=== PATIENT | male | born 1970 | race Caucasian/White ===

== ENCOUNTER 2018-08-13 15:45 | Emergency (ER) | payer OTHER ==
[~2018-08-13] VITALS: Ht 175.3 cm; Wt 104.3 kg
--- OUTSIDE RECORDS SUMMARY | 2018-08-13 15:51 | XMS REPORT | Continuity of Care Document ---
Demographics Preferred Language Unknown Marital Status Unknown Evangelical Affiliation Unknown Race Unknown Ethnic Group Unknown Author Author [facility] Address Unknown Phone Unavailable Allergies There is no data. Medications There is no data. Problems Date Dx Coded Attending Type Code Diagnosis Diagnosed By 09/13/2011 296.90 MOOD DISORDER NOS Procedures There is no data. Results There is no data. Encounters ACCT No. Visit Date/Time Discharge Status Pt. Type Provider Facility Loc./Unit Complaint [id number] 02/28/2012 17:52:00 02/28/2012 23:59:59 CLS Outpatient
[2018-08-13] MEDS ORDERED: LIDOCAINE/EPI 2% 1:100,00 (XYLOCAINE) 20 ML VIAL INJ ONE (16:00)
[2018-08-13] MEDS ORDERED: TETANUS,DIPTH,PERTUSS P/F (BOOSTRIX) 0.5 ML VIAL IM ONE (16:00)
--- NOTE | 2018-08-13 16:03 | ED Head Injury ---
General Chief Complaint: Laceration Stated Complaint: HIT IN THE HEAD WITH TOOL Source: patient Exam Limitations: no limitations History of Present Illness Date Seen by Provider: Aug 13, 2018 Time Seen by Provider: 16:00 Initial Comments To ER with reports of being hit in the top of the head with a pallet arm at work at [employer] just prior to arrival. Tetanus is not up-to-date. Small laceration to the scalp. No active bleeding. Did not lose consciousness, no headache, no nausea no vomiting no dizziness no other concussive or head injury symptoms. Occurred: just prior to arrival Severity: mild Location: parietal Method of Injury: direct blow Loss of Consciousness: no loss of consciousness Associated Systoms: Other Allergies and Home Medications Allergies Coded Allergies: No Known Drug Allergies (Unverified , 08/13/18) Home Medications No Active Prescriptions or Reported Meds Patient Home Medication List Home Medication List Reviewed: Yes Review of Systems Review of Systems Constitutional: see HPI Eyes: No Symptoms Reported Ears, Nose, Mouth, Throat: no symptoms reported Respiratory: no symptoms reported Cardiovascular: no symptoms reported Genitourinary: no symptoms reported Musculoskeletal: no symptoms reported Skin: see HPI Psychiatric/Neurological: No Symptoms Reported Endocrine: No Symptoms Reported Hematologic/Lymphatic: No Symptoms Reported Past Bqduili-Tnidvy-Onstnn Hx Patient Social History Recent Foreign Travel: No Contact w/Someone Who Travel: No Physical Exam Vital Signs Capillary Refill : Height, Weight, BMI Height: '" Weight: lbs. oz. kg; BMI Method: General Appearance: WD/WN, no apparent distress HEENT: PERRL/EOMI, normal ENT inspection, TMs normal Neck: non-tender, full range of motion Respiratory: no respiratory distress, no accessory muscle use Psychiatric: alert, oriented x 3 [place] Nerves: normal hearing, PERRL Skin: normal color, warm/dry, other (3 centimeter laceration to the right parietal scalp oriented and anterior to posterior fashion. No active bleeding.) [place] Coma Score Best Eye Response: (4) Open Spontaneously Best Verbal Response: (5) Oriented Best Motor Response: (6) Obeys Commands [place] Total: 15 Procedures/Interventions Wound Location: Scalp Wound Length (cm): 3 Wound's Depth, Shape: linear, sub Q Wound Explored: clean Irrigated w/ Saline (ccs): 30 Anesthesia: Lidocaine w/ Epi Staple Repair: Stapler Skin Precise Progress Anesthetized with 3 mL of 2% lidocaine with epinephrine. Scrubbed with waxing/ saline solution, irrigated with plain saline. Closed with 5 willie. Progress/Results/Core Measures Results/Orders My Orders Orders - IVONNE HARPER APRN Lidocaine/Epi 2% 1:100,000 (Xylocaine/Ep (08/13/18 16:00) Dipht,Pertuss(Acell),Tet Adult (Boostrix (08/13/18 16:00) Departure Impression Primary Impression: Scalp laceration Qualified Codes: S01.01XA - Laceration without foreign body of scalp, initial encounter Disposition: HOME, SELF-CARE Condition: Stable Departure-Patient Inst. Decision time for Depature: 16:02 Patient Instructions: Laceration Repair With [place] (DC) Add. Discharge Instructions: 1. Return to the emergency room to have the willie removed in about 7 days. Return before then for any sign of head injury such as severe headache, nausea vomiting or other concerns. You may shower allowing water and over the sternum tonight. All discharge instructions reviewed with patient and/or family. Voiced understanding. Scripts No Active Prescriptions or Reported Meds IVONNE HARPER APRN Aug 13, 2018 16:03
[2018-08-13 16:28] VITALS: BP 163/96
== END 2018-08-13 16:28 | disposition home or self-care (01) ==
LOC: EDUNIT# 15:45 → ER 15:48
DX: S01.01XA Laceration without foreign body of scalp, initial encounter (principal); R40.2142 Coma scale, eyes open, spontaneous, at arrival to emergency department; R40.2252 Coma scale, best verbal response, oriented, at arrival to emergency department; R40.2362 Coma scale, best motor response, obeys commands, at arrival to emergency department; Z23 Encounter for immunization; W22.09XA Striking against other stationary object, initial encounter; Y92.59 Other trade areas as the place of occurrence of the external cause; Y99.0 Civilian activity done for income or pay
CPT/HCPCS: 12001; 90471; 90715

== ENCOUNTER 2018-08-20 10:49 | Emergency (ER) | payer OTHER ==
[~2018-08-20] VITALS: Ht 177.8 cm; Wt 108.9 kg
--- OUTSIDE RECORDS SUMMARY | 2018-08-20 11:08 | XMS REPORT | Continuity of Care Document ---
Demographics Preferred Language Unknown Marital Status Unknown Alevism Affiliation Unknown Race Unknown Ethnic Group Unknown Author Author [facility] Address Unknown Phone Unavailable Allergies There is no data. Medications There is no data. Problems Date Dx Coded Attending Type Code Diagnosis Diagnosed By 09/13/2011 296.90 MOOD DISORDER NOS Procedures There is no data. Results There is no data. Encounters ACCT No. Visit Date/Time Discharge Status Pt. Type Provider Facility Loc./Unit Complaint [id number] 02/28/2012 17:52:00 02/28/2012 23:59:59 CLS Outpatient
[2018-08-20 11:40] VITALS: BP 151/95
== END 2018-08-20 11:45 | disposition home or self-care (01) ==
LOC: EDUNIT# 10:49 → ER 10:50
DX: S01.01XD Laceration without foreign body of scalp, subsequent encounter (principal); X58.XXXD Exposure to other specified factors, subsequent encounter

== ENCOUNTER → 2021-01-27 | Outpatient (CLI) | payer OTHER ==
--- NOTE | 2021-01-27 09:19 | Diagnostic Imaging Report ---
EXAMINATION: Right hand radiographs, single view. Right fifth finger radiographs, 2 additional views. COMPARISON: None. HISTORY: 50-year-old male, crush injury of the fifth finger. Fifth finger pain. FINDINGS: There is positive ulnar variance. There is mild distal radial ulnar arthritis. There is a well-corticated ossification in the region of the ulnar styloid most likely relating to remote prior injury. There is no acute fracture. No subluxation or dislocation. There is no identified radiopaque foreign body. There is a sclerotic lesion in the distal radius most likely reflecting a benign bone island. IMPRESSION: 1. No identified acute bony abnormality. 2. No identified radiopaque foreign body. 3. 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 Dictated by: Dictated on workstation # [id number]
== END ==
LOC: RAD 08:30
PROVIDERS: ATTEND Nurse Practitioner Family
DX: M19.041 Primary osteoarthritis, right hand (principal); S69.91XA Unspecified injury of right wrist, hand and finger(s), initial encounter; X58.XXXA Exposure to other specified factors, initial encounter
CPT/HCPCS: 73140